=== PATIENT | female | born 1980 | race American Indian/Alaskan Native ===

== ENCOUNTER 2016-09-30 12:45 | Outpatient (CLI) | payer MEDICAID ==
--- NOTE | 2016-10-01 08:41 | Cat Scan Report ---
CT LUMBAR SPINE WITHOUT CONTRAST HISTORY: Lumbar radiculopathy, herniated disc. TECHNIQUE: Helical CT without IV contrast. Sagittal and coronal reformatted images. COMPARISON: CT lumbar myelogram dated 01/08/16. FINDINGS: Posterior fusion changes and disc spacer placement at L5-S1 appear stable since 01/08/16. There is normal height and alignment of the lumbar vertebra. No fracture or malalignment. The posterior elements are in appropriate relationship. L5-S1: There is mild circumferential disc spurring with mild bilateral neural foraminal narrowing estimated at 25-50%. The left neural foramen appears slightly more affected. There are mild arthritic changes in the facet joints. Evaluation of intraspinal contents is limited without intrathecal contrast. No large herniation is appreciated. The remaining levels of the lumbar spine remain within normal limits. The paraspinal soft tissues are unremarkable. IMPRESSION: Surgical changes at L5-S1 as outlined above. There is mild to moderate bilateral neural foraminal narrowing at this level, left greater than right. Please see above. The remaining levels are within normal limits. No overwhelming change since the CT lumbar myelogram dated 01/08/16.
== END 2016-09-30 12:46 | disposition home or self-care (01) ==
LOC: CT 12:45
PROVIDERS: ATTEND Orthopaedic Surgery Orthopaedic Surgery of the Spine
DX: M48.02 Spinal stenosis, cervical region (principal); M48.06 Spinal stenosis, lumbar region; M51.16 Intervertebral disc disorders with radiculopathy, lumbar region; M50.10 Cervical disc disorder with radiculopathy, unspecified cervical region; M47.896 Other spondylosis, lumbar region
CPT/HCPCS: 72131

== ENCOUNTER 2018-12-17 14:54 | Emergency (ER) | payer MEDICAID ==
--- NOTE | 2018-12-17 15:13 | Event Note ---
ED Screening Note Date of service: 12/17/18 Time: 15:10 ED Screening Note: 38 y/o female comes in for abd with N/V. Feeling near faint. Had gastric sleeve in May. !0 weeks preg. This initial assessment/diagnostic orders/clinical plan/treatment(s) is/are subject to change based on patients health status, clinical progression and re- assessment by fellow clinical providers in the ED. Further treatment and workup at subsequent clinical providers discretion. Patient/guardian urged not to elope from the ED as their condition may be serious if not clinically assessed and managed. Initial orders include:
[2018-12-17] MEDS ORDERED: NACL 0.9% 1000 ML 1,000 ML IV ONE ×2 (15:46→18:05)
[2018-12-17] MEDS ORDERED: ZOFRAN IV ONE (15:46)
--- NOTE | 2018-12-17 15:50 | Emergency Department Report ---
<DAVID PHILLIPS - Last Filed: 12/17/18 18:53> ED General Adult HPI - General Chief complaint: Weakness Stated complaint: 10 WKS /DIZZY Time Seen by Provider: 12/17/18 15:43 - History of Present Illness Initial comments: Patient states that she receives care at [facility]. Patient states that she is unable to eat as much as she used to since her surgery in May. - Related Data Home Medications Medication Instructions Recorded Confirmed Last Taken traMADol [Ultram 50 MG tab] 50 mg PO PRN PRN 01/08/16 01/08/16 01/03/16 Previous Rx's Medication Instructions Recorded Last Taken Type HYDROcodone/APAP 5-325 [[place] 1 each PO Q6HR PRN #20 tablet 01/12/16 Unknown Rx 5/325] Ibuprofen [Motrin] 800 mg PO Q8HR PRN #30 tablet 01/12/16 Unknown Rx Allergies Allergy/AdvReac Type Severity Reaction Status Date / Time No Known Allergies Allergy Verified 12/17/18 15:11 ED Past Medical Hx - Medications Home Medications: Home Medications Medication Instructions Recorded Confirmed Last Taken Type traMADol [Ultram 50 MG tab] 50 mg PO PRN PRN 01/08/16 01/08/16 01/03/16 History HYDROcodone/APAP 5-325 [[place] 1 each PO Q6HR PRN #20 tablet 01/12/16 Unknown Rx 5/325] Ibuprofen [Motrin] 800 mg PO Q8HR PRN #30 tablet 01/12/16 Unknown Rx ED Medical Decision Making - Lab Data Result diagrams: 12/17/18 15:30 12/17/18 15:30 - EKG Data EKG shows normal: sinus rhythm Rate: normal, bradycardia - Radiology Data Radiology results: report reviewed, image reviewed - Medical Decision Making This is a 38-year-old female presented to the ED at about 10 weeks gestation for weakness and feeling dizzy due to the loss of appetite. Patient received 1 L of fluids in the ED. Lab labs obtained. CBC and CMP shows normal results. Ultrasound obtained pending. Patient reports feeling much better with the fluids. The patient follow up with her primary care physician 2-3 days. Discussed the patient she will need to eat more to sustain some energy for completion of the . Discussed. Medical ED every hour in small quantities. ED Disposition Clinical Impression: Episode of dizziness Disposition: DC-01 TO HOME OR SELFCARE Is pt being admited?: No Does the pt Need Aspirin: No Condition: Stable Instructions: (ED), Weakness (ED), Fatigue (ED) Additional Instructions: Make sure to follow up with the [facility] as discussed. Take all your medications as you've been prescribed. If you have any worsening symptoms or develop new symptoms please return to ED immediately. Referrals: MEÑO WHITEHEAD MD [Referring] - 3-5 Days [facility] [Provider Group] - 3-5 Days Forms: Accompanied Note, Work/School Release Form(ED) <ABIODUN KOHLER - Last Filed: 12/18/18 08:08> ED General Adult HPI - General Source: patient, family Mode of arrival: Wheelchair Limitations: No Limitations - History of Present Illness Initial comments: Patient is 38 years old female 4 para 1 with 2 miscarriage at 10 weeks p regnant. Patient presented to the ER complaining of generalized weakness and fainting. Symptoms started yesterday. Patient stated that she is unable to eat or drink. Patient had a gastric sleeve in May 2018. Patient denied any diarrhea. No vaginal bleeding or discharge. ED Review of Systems ROS: Stated complaint: 10 WKS /DIZZY Other details as noted in HPI Comment: All other systems reviewed and negative Constitutional: denies: chills, fever Respiratory: denies: cough, shortness of breath Cardiovascular: denies: chest pain, palpitations Gastrointestinal: nausea Musculoskeletal: denies: back pain Neurological: weakness. denies: headache, numbness, paresthesias, confusion ED Past Medical Hx - Surgical History Hx Cholecystectomy: Yes Additional Surgical History: tonsilectomy, L wrist. Surgery to neck and lower back 08/27/2015. Right shoulder surgery - Social History Smoking Status: Never Smoker Substance Use Type: None ED Physical Exam - General Limitations: No Limitations General appearance: alert, in no apparent distress - Head Head exam: Present: atraumatic, normocephalic, normal inspection - Eye Eye exam: Present: normal appearance, PERRL - ENT ENT exam: Present: mucous membranes dry - Neck Neck exam: Present: normal inspection, full ROM. Absent: tenderness, meningismus, lymphadenopathy, thyromegaly - Respiratory Respiratory exam: Present: normal lung sounds bilaterally - Cardiovascular Cardiovascular Exam: Present: regular rate, normal rhythm, normal heart sounds - GI/Abdominal GI/Abdominal exam: Present: soft, normal bowel sounds. Absent: distended, tenderness, guarding, rebound, rigid, organomegaly, mass, bruit, pulsatile mass, hernia - Extremities Exam Extremities exam: Present: normal inspection, full ROM, normal capillary refill. Absent: tenderness, pedal edema, calf tenderness - Back Exam Back exam: Present: normal inspection, full ROM. Absent: CVA tenderness (R), CVA tenderness (L), muscle spasm, paraspinal tenderness, vertebral tenderness - Neurological Exam Neurological exam: Present: alert, oriented X3, CN II-XII intact, normal gait, reflexes normal - Psychiatric Psychiatric exam: Present: normal mood - Skin Skin exam: Present: warm, intact, normal color ED Course Vital Signs 12/17/18 12/17/18 15:08 19:12 Temperature 97.6 F 98.4 F Pulse Rate 60 74 Respiratory 16 15 Rate Blood Pressure 96/66 Blood Pressure 95/56 [Left] O2 Sat by Pulse 100 100 Oximetry ED Medical Decision Making - Lab Data Result diagrams: 12/17/18 15:30 12/17/18 15:30 Critical care attestation.: If time is entered above; I have spent that time in minutes in the direct care of this critically ill patient, excluding procedure time. ED Disposition Is pt being admited?: No Does the pt Need Aspirin: No
[2018-12-17 16:29] LABS: Basophils % (Auto) 0.5 % (0.0-1.8); Eosinophils % (Auto) 0.2 % (0.0-4.3); Hematocrit 36.1 % (30.3-42.9); Hemoglobin 12.1 gm/dl (10.1-14.3); Lymphocytes # (Auto) 1.3 K/mm3 (1.2-5.4); Lymphocytes % (Auto) 25.3 % (13.4-35.0); Mean Corpuscular HGB Conc 34 % (30-34); Mean Corpuscular Volume 91 fl (79-97); Monocytes # (Auto) 0.4 K/mm3 (0.0-0.8); Monocytes % (Auto) 6.8 % (0.0-7.3); Platelet Count 215 K/mm3 (140-440); Red Blood Count 3.97 M/mm3 (3.65-5.03); Red Cell Distribution Width 12.8 % (13.2-15.2)
[2018-12-17 16:44] LABS: Alanine Aminotransferase 12 units/L (7-56); Albumin 4.2 g/dL (3.9-5); BUN/Creatinine Ratio 22; Blood Urea Nitrogen 13 mg/dL (7-17); Calcium 9.5 mg/dL (8.4-10.2); Hemolysis Index 8
[2018-12-17 19:05] LABS: Bilirubin,Urine NEG (Negative); Blood,Urine NEG (Negative); Color,Urine Amber (Yellow); Mucus,Urine 3+ /HPF
[2018-12-17 19:13] VITALS: BP 95/56
--- NOTE | 2018-12-17 19:59 | Ultrasound Report ---
OB ultrasound FINDINGS: There is a viable intrauterine with appropriate measurements reveal a MA of 9 wee ks 5 days for EDC of 07/17/2019. This correlates with the clinical dates. heart rate is 156 bpm. Both ovaries appear normal. No free fluid. No significant abnormality. Signer Name: Elias John MD Signed: 12/17/2018 7:54 PM Workstation Name: [id number]
--- NOTE | 2018-12-17 20:02 | Ultrasound Report ---
Endovaginal OB ultrasound FINDINGS: There is a viable intrauterine with crown-rump length and sac measurements corres ponding to an MA of 8 weeks 2 days for EDC of 07/27/2019. This is slightly behind the clinical dates. heart rate is 150 bpm. The left ovary measures 4 x 1.8 x 2.4 cm and is normal. The right ovary measures 2.6 x 2.4 x 2.3 cm and contains a hypoechoic, solid area measuring 1.9 x 1.6 x 1.9 cm. No fr ee fluid. IMPRESSION: Viable IUP as described. Signer Name: Elias John MD Signed: 12/17/2018 7:57 PM Workstation Name: [id number]
== END 2018-12-17 20:13 | disposition home or self-care (01) ==
LOC: ED 14:54
DX: O26.891 Other specified pregnancy related conditions, first trimester (principal); R42 Dizziness and giddiness; R53.1 Weakness; Z79.899 Other long term (current) drug therapy; Z90.89 Acquired absence of other organs; Z98.890 Other specified postprocedural states; Z3A.10 10 weeks gestation of pregnancy; Z90.49 Acquired absence of other specified parts of digestive tract; Z79.1 Long term (current) use of non-steroidal anti-inflammatories (NSAID)
CPT/HCPCS: 36415; 76801; 76817; 80053; 81001; 82962; 84702; 85025; 87086; 93005; 93010; 96361; 96374; 99284; J2405; J7030

== ENCOUNTER 2019-05-22 04:36 | Observation (INO) | payer MEDICAID ==
[2019-05-22 06:01] LABS: Basophils % (Auto) 0.4 % (0.0-1.8); Eosinophils % (Auto) 0.4 % (0.0-4.3); Hemoglobin 10.9 gm/dl (10.1-14.3); Lymphocytes # (Auto) 1.5 K/mm3 (1.2-5.4); Lymphocytes % (Auto) 20.8 % (13.4-35.0); Mean Corpuscular HGB Conc 34 % (30-34); Mean Corpuscular Volume 92 fl (79-97); Monocytes # (Auto) 0.4 K/mm3 (0.0-0.8); Platelet Count 205 K/mm3 (140-440); Red Blood Count 3.48 M/mm3 (3.65-5.03); Red Cell Distribution Width 13.2 % (13.2-15.2)
[2019-05-22 06:25] LABS: Alanine Aminotransferase 8 units/L (7-56); Albumin 3.6 g/dL (3.9-5); BUN/Creatinine Ratio 15; Blood Urea Nitrogen 6 mg/dL (7-17); Hemolysis Index 1
--- NOTE | 2019-05-22 13:07 | History and Physical Report ---
History of Present Illness Date of examination: 05/22/19 Date of admission: 05/22/2019 Chief complaint: Was transported to the hospital's L&D after she was observed having a seizure at [facility]. Patient is 30wks and had no previous hx of seizures. History of present illness: Was transported to the hospital's L&D after she was observed having a seizure at [facility]. Patient is 30wks and had no previous hx of seizures. 30+4wks . EDC 07/27/19. . She denied contractions, vaginal bleeding or leakage of fluids. fetus was moving as usual. Past History Past Surgical History: gastric bypass - Obstetrical History Expected Date of Delivery: 07/27/19 Actual Gestation: 30 Week(s) 4 Day(s) : 4 Para: 1 Medications and Allergies Allergies Allergy/AdvReac Type Severity Reaction Status Date / Time No Known Allergies Allergy Verified 12/17/18 15:11 Home Medications Medication Instructions Recorded Confirmed Last Taken Type Formula-Dha Softgel 1 tab PO DAILY 05/22/19 05/22/19 05/21/19 09:00 History Review of Systems All systems: negative - Vital Signs Vital signs: Vital Signs Pulse Pulse Ox 72 99 05/22/19 04:56 05/22/19 04:56 Temp Pulse Resp BP Pulse Ox 98.2 F 91 H 16 100/56 99 05/22/19 11:26 05/22/19 11:26 05/22/19 11:26 05/22/19 11:26 05/22/19 11:26 - Physical Exam Lungs: Positive: Normal air movement Abdomen: Positive: soft, distention. Negative: tenderness, guarding Uterus: Positive: normal size, enlarged - Obstetrical FHR: auscultation normal Results Result Diagrams: 05/22/19 05:15 05/22/19 05:15 Abnormal lab results 05/22/19 05/22/19 Range/Units 05:15 05:15 RBC 3.48 L (3.65-5.03) M/mm3 Seg Neutrophils % 72.4 H (40.0-70.0) % Sodium 136 L (137-145) mmol/L Carbon Dioxide 20 L (22-30) mmol/L BUN 6 L (7-17) mg/dL Creatinine 0.4 L (0.7-1.2) mg/dL Total Protein 6.1 L (6.3-8.2) g/dL Albumin 3.6 L (3.9-5) g/dL All other labs normal. Assessment and Plan - Patient Problems (1) with 30 completed weeks gestation Current Visit: Yes Status: Acute (2) Seizure disorder during in third trimester Current Visit: Yes Status: Acute Plan to address problem: Patient will remain under observation whilst being worked up. It's unclear if observed seizure was related or otherwise.MFM at [facility] are familiar with patient and guidance from them was sought.
[2019-05-22 13:45] LABS: Bacteria,Urine 2+ /HPF (Negative); Bilirubin,Urine NEG (Negative); Blood,Urine NEG (Negative); Color,Urine Straw (Yellow); Protein,Urine <15 mg/dL mg/dL (Negative); Urobilinogen,Urine < 2.0 mg/dL (<2.0)
[2019-05-22] MEDS: ACETAMINOPHEN 325 MG TAB PO PRN (21:22)
--- NOTE | 2019-05-23 08:48 | Consultation ---
History of Present Illness Consult date: 05/23/19 Requesting physician: ANGÉLICA COLLIER History of present illness: Ms. Angel is a 39 y/o STEPHEN 07/27/18 EGA at 30 4/7 weeks followed by [facility] for AMA and H/O Gastric bypass per patient Transported by ambulance to L&D on 05/22/19 at 0436 am after suspected seizure at [facility] BP normal 98/65 - No JAMES's Scotoma or RUQ Pain Denies h/o seizure in past Feeling tired and lethargic throughout - Recent h/o gastric bypass Alexis Reports h/o anemia FOC states patient bathing child around 2 am and felt weak and "eyes started rolling" did not fall lasted 3 minutes Pos FM's Denies ctx vag bleeding leaking --------- Med history - neg but anemia Reports ?? clot in leg diag by a family physician (not on anticoagulants)- Today on PE leg NT no calf tenderness neg homans surg gastric bypass - surgery on back and neck from " fall at home" no STD denies C/D/D NKA --------- UA Pos for WBC , bact 2+ , Prot < 14 Pos epi - Denies dysuria or back pain or fevers H/H T 10.4/32 EFM Categ I 130's pos accels no contractions --- Abd gravid NT no RUQ tenderness Ext NT no edema , DTR 2/4 no clonus neg homans vag deferred Past History Past Surgical History: gastric bypass - Obstetrical History : 4 Medications and Allergies Allergies Allergy/AdvReac Type Severity Reaction Status Date / Time No Known Allergies Allergy Verified 12/17/18 15:11 Home Medications Medication Instructions Recorded Confirmed Last Taken Type Formula-Dha Softgel 1 tab PO DAILY 05/22/19 05/22/19 05/21/19 09:00 History Active Meds: Active Medications Acetaminophen (Tylenol) 650 mg PO Q6H PRN PRN Reason: Pain, Mild (1-3) Last Admin: 05/22/19 21:22 Dose: 650 mg Documented by: - Vital Signs Vital signs: Vital Signs Pulse Pulse Ox 72 99 05/22/19 04:56 05/22/19 04:56 Temp Pulse Resp BP Pulse Ox 98.3 F 74 12 98/65 100 05/22/19 20:05 05/23/19 07:58 05/22/19 20:05 05/23/19 07:58 05/23/19 07:56 Results Result Diagrams: 05/22/19 05:15 05/22/19 05:15 Abnormal lab results 05/22/19 Range/Units 13:05 Urine WBC (Auto) 23.0 H (0.0-6.0) /HPF All other labs normal. Assessment and Plan Impression: 1. Morales IUP at 30 4/7 weeks 2. Suspected Seizure 3. AMA 4. H/O Gastric Bypass 5. UTI 6. ?? H/O blood clot leg per patient ("diag by family physician") 7. H/O anemia Recommendations 1. Straight Cath UA and C&S - after striaght cath - Macrodantoin 100 BID PO 2. Labs: HbA1c, drug screen Folate level Vit B12 3. US EFW and BPP 4. Lower leg dopplers 5. Neuro consult 6. Iron BID 7. Possible discharged pending seizure work uup 8. EFM q shift
--- NOTE | 2019-05-23 14:25 | Progress Note ---
Assessment and Plan - Patient Problems (1) with 30 completed weeks gestation Current Visit: Yes Status: Acute Plan to address problem: stable. Because of h/o questionable DVT noted in [facility]'s note, LE Doppler ordered. BPP also ordered. (2) Seizure disorder during in third trimester Current Visit: Yes Status: Acute Plan to address problem: Labs per [facility] recommendations ordered and Macrobid for suspected UTI started. Neuro consult also ordered to assess whether she had a seizure or not, if any further intervention is needed and if pt is stable for discharge Subjective - Subjective Date of service: 05/23/19 Interval history: PT denies any syncopal episodes today. She notes she still feels weak, even weaker than she did before going to the hospital a few days ago. No ctxs, good FM. No VB. No JAMES/blurred vision currently. Objective - Vital Signs Vital Signs: Vital Signs - 12hr 05/23/19 05/23/19 05/23/19 02:21 02:26 02:31 Pulse Rate 69 74 74 Blood Pressure Blood Pressure [Right] O2 Sat by Pulse 99 99 98 Oximetry 05/23/19 05/23/19 05/23/19 02:36 02:41 02:46 Pulse Rate 74 70 71 Blood Pressure 92/55 Blood Pressure [Right] O2 Sat by Pulse 98 99 100 Oximetry 05/23/19 05/23/19 05/23/19 02:51 02:56 03:01 Pulse Rate 70 69 74 Blood Pressure Blood Pressure [Right] O2 Sat by Pulse 100 100 100 Oximetry 05/23/19 05/23/19 05/23/19 03:06 03:11 03:16 Pulse Rate 74 75 71 Blood Pressure Blood Pressure [Right] O2 Sat by Pulse 100 100 100 Oximetry 05/23/19 05/23/19 05/23/19 03:21 03:26 03:31 Pulse Rate 77 72 74 Blood Pressure Blood Pressure [Right] O2 Sat by Pulse 100 100 100 Oximetry 05/23/19 05/23/19 05/23/19 03:36 03:41 03:42 Pulse Rate 70 79 72 Blood Pressure 92/57 Blood Pressure [Right] O2 Sat by Pulse 100 99 Oximetry 05/23/19 05/23/19 05/23/19 03:46 03:51 03:56 Pulse Rate 71 86 78 Blood Pressure Blood Pressure [Right] O2 Sat by Pulse 98 99 100 Oximetry 05/23/19 05/23/19 05/23/19 04:01 04:06 04:11 Pulse Rate 83 84 74 Blood Pressure Blood Pressure [Right] O2 Sat by Pulse 99 99 98 Oximetry 05/23/19 05/23/19 05/23/19 04:16 04:21 04:26 Pulse Rate 76 76 79 Blood Pressure Blood Pressure [Right] O2 Sat by Pulse 98 98 98 Oximetry 05/23/19 05/23/19 05/23/19 04:31 04:36 04:41 Pulse Rate 82 86 83 Blood Pressure Blood Pressure [Right] O2 Sat by Pulse 98 99 99 Oximetry 05/23/19 05/23/19 05/23/19 04:42 04:46 04:51 Pulse Rate 78 76 74 Blood Pressure 101/60 Blood Pressure [Right] O2 Sat by Pulse 98 98 Oximetry 05/23/19 05/23/19 05/23/19 04:56 05:01 05:06 Pulse Rate 80 77 78 Blood Pressure Blood Pressure [Right] O2 Sat by Pulse 99 98 98 Oximetry 05/23/19 05/23/19 05/23/19 05:11 05:16 05:21 Pulse Rate 78 88 80 Blood Pressure Blood Pressure [Right] O2 Sat by Pulse 98 99 98 Oximetry 05/23/19 05/23/19 05/23/19 05:26 05:31 05:36 Pulse Rate 79 81 79 Blood Pressure Blood Pressure [Right] O2 Sat by Pulse 98 98 98 Oximetry 05/23/19 05/23/19 05/23/19 05:41 05:43 05:46 Pulse Rate 78 72 75 Blood Pressure 91/50 Blood Pressure [Right] O2 Sat by Pulse 98 98 Oximetry 05/23/19 05/23/19 05/23/19 05:51 05:56 06:01 Pulse Rate 73 69 75 Blood Pressure Blood Pressure [Right] O2 Sat by Pulse 97 99 97 Oximetry 05/23/19 05/23/19 05/23/19 06:06 06:11 06:16 Pulse Rate 84 79 76 Blood Pressure Blood Pressure [Right] O2 Sat by Pulse 98 99 98 Oximetry 05/23/19 05/23/19 05/23/19 06:21 06:26 06:31 Pulse Rate 86 80 84 Blood Pressure Blood Pressure [Right] O2 Sat by Pulse 99 98 99 Oximetry 05/23/19 05/23/19 05/23/19 06:36 06:41 06:42 Pulse Rate 87 81 85 Blood Pressure 93/54 Blood Pressure [Right] O2 Sat by Pulse 98 98 Oximetry 05/23/19 05/23/19 05/23/19 06:46 06:51 06:56 Pulse Rate 72 75 95 H Blood Pressure Blood Pressure [Right] O2 Sat by Pulse 99 98 99 Oximetry 05/23/19 05/23/19 05/23/19 07:01 07:06 07:11 Pulse Rate 85 79 80 Blood Pressure Blood Pressure [Right] O2 Sat by Pulse 100 100 100 Oximetry 05/23/19 05/23/19 05/23/19 07:16 07:21 07:26 Pulse Rate 74 77 78 Blood Pressure Blood Pressure [Right] O2 Sat by Pulse 100 100 100 Oximetry 05/23/19 05/23/19 05/23/19 07:31 07:36 07:41 Pulse Rate 75 78 67 Blood Pressure Blood Pressure [Right] O2 Sat by Pulse 99 98 99 Oximetry 05/23/19 05/23/19 05/23/19 07:42 07:46 07:51 Pulse Rate 70 77 71 Blood Pressure 94/58 Blood Pressure [Right] O2 Sat by Pulse 98 98 Oximetry 05/23/19 05/23/19 05/23/19 07:56 07:58 08:42 Pulse Rate 77 74 78 Blood Pressure 98/65 115/61 Blood Pressure 98/65 [Right] O2 Sat by Pulse 100 Oximetry 05/23/19 05/23/19 05/23/19 09:43 10:42 13:06 Pulse Rate 73 71 81 Blood Pressure 98/56 84/49 102/50 Blood Pressure [Right] O2 Sat by Pulse Oximetry 05/23/19 13:42 Pulse Rate 83 Blood Pressure 102/59 Blood Pressure [Right] O2 Sat by Pulse Oximetry - Exam Abdomen: Present: normal appearance, soft. Absent: tenderness FHR comments: WNL - Labs Labs: Abnormal Labs 05/22/19 05/22/19 05/22/19 05:15 05:15 13:05 RBC 3.48 L Seg Neutrophils % 72.4 H Sodium 136 L Carbon Dioxide 20 L BUN 6 L Creatinine 0.4 L Total Protein 6.1 L Albumin 3.6 L Urine WBC (Auto) 23.0 H
[2019-05-23 15:13] LABS: Amphetamine Screen,Urine PRESUMPTIVE NEGATIVE; Benzodiazepines Screen,Urine PRESUMPTIVE NEGATIVE; Cannabinoid Screen,Urine PRESUMPTIVE NEGATIVE; Cocaine Screen,Urine PRESUMPTIVE NEGATIVE; Methadone Screen,Urine PRESUMPTIVE NEGATIVE; Opiate Screen,Urine PRESUMPTIVE NEGATIVE
--- NOTE | 2019-05-23 15:18 | Vascular Lab Report ---
DUPLEX DOPPLER LOWER EXTREMITY VEINS, BILATERAL INDICATION: eval. for dvt. TECHNIQUE: Duplex doppler imaging was performed through the veins of both lower extremities using venous marilynn maria esther and other maneuvers. COMPARISON: None available. FINDINGS: Right Common femoral vein: Negative. Right Superficial femoral vein: Negative. Right Popliteal vein: Negative. Right Calf veins: Negative. Left Common femoral vein: Negative. Left Superficial femoral vein: Negative. Left Popliteal vein: Negative. Left Calf veins: Negative. Additional findings: None. IMPRESSION: Negative for DVT. Signer Name: Chacho Askew MD Signed: 05/23/2019 3:14 PM Workstation Name: [id number]
--- NOTE | 2019-05-23 16:59 | Ultrasound Report ---
Obstetrical ultrasound with biophysical profile. HISTORY: History obtaining. FINDINGS: Limited OB ultrasound demonstrates a single viable intrauterine in the breech pos ition. Amniotic fluid index is 11. Placenta is located at the fundus and unremarkable. heart to nasim are 156 bpm. Biophysical profile is 8/8. IMPRESSION: 1. Viable intrauterine . 2. Biophysical profile 88. Signer Name: Chacho Askew MD Signed: 05/23/2019 4:55 PM Workstation Name: [id number]
[2019-05-23] MEDS: NITROFURANTOIN MONOHYD/M-CRYST 100 MG CAP PO SCH ×2 (17:40→22:24)
[2019-05-23] MEDS: ACETAMINOPHEN 325 MG TAB PO PRN (22:30)
[2019-05-24] MEDS: ACETAMINOPHEN 325 MG TAB PO PRN (09:12)
[2019-05-24] MEDS ORDERED: DOCUSATE SODIUM 100 MG CAP PO ONE (10:00)
--- NOTE | 2019-05-24 10:18 | Progress Note ---
Assessment and Plan - Patient Problems (1) with 30 completed weeks gestation Onset Date: 05/24/19 Current Visit: Yes Status: Acute Plan to address problem: A: IUP @ 30 5/7 weeks New onset seizures - currently stable without meds P: Continue Observation Awaiting EEG (2) Seizure disorder during in third trimester Onset Date: 05/24/19 Current Visit: Yes Status: Acute Subjective - Subjective Date of service: 05/24/19 Principal diagnosis: IUP @ 30 5/7 weeks; New onset seizures Interval history: Pt is a 39yo BF EDC 07/27/19; EGA 30 5/7 weeks transported to the hospital's L&D after she was observed having a seizure at [facility]. She has no previous hx of seizures and has not had any further seizures since being hospitalized. She denied contractions, vaginal bleeding or leakage of fluids. + movements as usual. Patient reports: new complaints (headache), movement normal, no loss of fluid, no vaginal bleeding, no contractions Objective - Vital Signs Vital Signs: Vital Signs - 12hr 05/24/19 05/24/19 05/24/19 07:56 08:03 08:04 Temperature 98.4 F Pulse Rate 84 91 H 88 Respiratory 18 Rate Blood Pressure 104/64 Blood Pressure 104/64 [Right] O2 Sat by Pulse 98 Oximetry 05/24/19 05/24/19 05/24/19 08:08 08:13 08:18 Temperature Pulse Rate 89 88 88 Respiratory Rate Blood Pressure Blood Pressure [Right] O2 Sat by Pulse 98 98 97 Oximetry 05/24/19 05/24/19 05/24/19 08:23 08:28 08:33 Temperature Pulse Rate 88 90 86 Respiratory Rate Blood Pressure Blood Pressure [Right] O2 Sat by Pulse 99 99 98 Oximetry 05/24/19 05/24/19 05/24/19 08:38 08:43 08:48 Temperature Pulse Rate 93 H 88 98 H Respiratory Rate Blood Pressure Blood Pressure [Right] O2 Sat by Pulse 98 98 98 Oximetry 05/24/19 05/24/19 05/24/19 08:53 08:58 09:03 Temperature Pulse Rate 94 H 89 83 Respiratory Rate Blood Pressure Blood Pressure [Right] O2 Sat by Pulse 99 98 98 Oximetry 12/25/19 12/25/19 12/25/19 09:08 09:13 09:18 Temperature Pulse Rate 91 H 94 H 92 H Respiratory Rate Blood Pressure Blood Pressure [Right] O2 Sat by Pulse 97 99 98 Oximetry 05/24/19 05/24/19 05/24/19 09:23 09:28 09:33 Temperature Pulse Rate 87 84 90 Respiratory Rate Blood Pressure Blood Pressure [Right] O2 Sat by Pulse 97 97 98 Oximetry 05/24/19 05/24/19 05/24/19 09:38 09:43 09:52 Temperature Pulse Rate 94 H 91 H 85 Respiratory Rate Blood Pressure Blood Pressure [Right] O2 Sat by Pulse 97 98 99 Oximetry 05/24/19 05/24/19 05/24/19 09:57 10:02 10:07 Temperature Pulse Rate 90 90 88 Respiratory Rate Blood Pressure Blood Pressure [Right] O2 Sat by Pulse 98 97 97 Oximetry 05/24/19 10:12 Temperature Pulse Rate 88 Respiratory Rate Blood Pressure Blood Pressure [Right] O2 Sat by Pulse 98 Oximetry - Exam Breasts: deferred Abdomen: Present: normal appearance, soft FHR: category 1 Uterine Contraction Monitor Mode: External Uterine Contraction Pattern: Absent - Labs Labs: Abnormal Labs 05/22/19 05/22/19 05/22/19 05:15 05:15 13:05 RBC 3.48 L Seg Neutrophils % 72.4 H Sodium 136 L Carbon Dioxide 20 L BUN 6 L Creatinine 0.4 L Total Protein 6.1 L Albumin 3.6 L Urine WBC (Auto) 23.0 H Laboratory Results - last 24 hr 05/23/19 05/23/19 05/23/19 09:30 16:24 16:24 Hemoglobin A1c 4.6 Vitamin B12 291.7 Folate Urine Opiates Screen Presumptive negative Urine Methadone Screen Presumptive negative Ur Barbiturates Screen Presumptive negative Ur Phencyclidine Scrn Presumptive negative Ur Amphetamines Screen Presumptive negative U Benzodiazepines Scrn Presumptive negative Urine Cocaine Screen Presumptive negative U Marijuana (THC) Screen Presumptive negative Drugs of Abuse Note Disclamer 05/23/19 16:24 Hemoglobin A1c Vitamin B12 Folate 17.09 Urine Opiates Screen Urine Methadone Screen Ur Barbiturates Screen Ur Phencyclidine Scrn Ur Amphetamines Screen U Benzodiazepines Scrn Urine Cocaine Screen U Marijuana (THC) Screen Drugs of Abuse Note - Results US- obstetric: report reviewed (BPP 01/05; Dopplers - Negative for DVT)
[2019-05-24] MEDS: NITROFURANTOIN MONOHYD/M-CRYST 100 MG CAP PO SCH ×2 (10:46→22:24)
[2019-05-24] MEDS: oxyCODONE /ACETAMINOPHEN 5-325MG TAB PO PRN ×2 (13:10→22:24)
[2019-05-25] MEDS ORDERED: LACTATED RINGERS 1,000 ML ONE ×2 (00:54→07:56)
[2019-05-25] MEDS ORDERED: LACTATED RINGERS 1,000 ML IV ONE (01:00)
[2019-05-25] MEDS ORDERED: TERBUTALINE 1 MG/1 ML INJ SUB-Q PRN (01:01)
[2019-05-25] MEDS ORDERED: ONDANSETRON 4 MG/2 ML INJ IV ONE (01:27)
--- NOTE | 2019-05-25 08:18 | Progress Note ---
Assessment and Plan - Patient Problems (1) with 30 completed weeks gestation Onset Date: 05/24/19 Current Visit: Yes Status: Acute (2) Seizure disorder during in third trimester Onset Date: 05/24/19 Current Visit: Yes Status: Acute Plan to address problem: Awaiting EEG today. Once it is done, pt can be assessed by Neuro and plan of care and discharge can be arranged. Subjective - Subjective Date of service: 05/25/19 Principal diagnosis: IUP @ 30 5/7 weeks; New onset seizures Interval history: PT denies any syncopal or seizure like episodes still, and none since in the hospital. She notes she still feels weak but it is improving. No ctxs currently but felt some overnight but also had some emesis then. Good FM. No VB. No JAMES/blurred vision. Patient reports: movement normal, no loss of fluid, no vaginal bleeding, no contractions Objective - Vital Signs Vital Signs: Vital Signs - 12hr 05/24/19 05/24/19 05/24/19 20:18 20:23 20:28 Pulse Rate 87 83 86 Blood Pressure O2 Sat by Pulse 98 98 98 Oximetry 05/24/19 05/24/19 05/24/19 20:33 20:38 20:43 Pulse Rate 84 84 90 Blood Pressure O2 Sat by Pulse 97 97 98 Oximetry 05/24/19 05/24/19 05/24/19 20:48 20:53 20:58 Pulse Rate 88 91 H 85 Blood Pressure O2 Sat by Pulse 98 97 98 Oximetry 05/24/19 05/24/19 05/24/19 21:03 21:08 21:13 Pulse Rate 94 H 85 83 Blood Pressure O2 Sat by Pulse 99 99 99 Oximetry 05/24/19 05/24/19 05/24/19 21:18 21:23 21:28 Pulse Rate 84 81 79 Blood Pressure O2 Sat by Pulse 98 98 98 Oximetry 05/24/19 05/24/19 05/24/19 21:33 21:38 21:43 Pulse Rate 84 83 84 Blood Pressure O2 Sat by Pulse 98 99 98 Oximetry 05/24/19 05/24/19 05/24/19 21:48 21:53 21:58 Pulse Rate 97 H 90 83 Blood Pressure O2 Sat by Pulse 100 100 98 Oximetry 05/24/19 05/24/19 05/24/19 22:03 22:08 22:13 Pulse Rate 81 79 84 Blood Pressure O2 Sat by Pulse 97 96 97 Oximetry 05/24/19 05/24/19 05/24/19 22:15 22:18 22:23 Pulse Rate 80 87 Blood Pressure O2 Sat by Pulse 76 L 46 L 84 Oximetry 05/24/19 05/24/19 05/24/19 22:28 22:33 22:38 Pulse Rate 84 83 82 Blood Pressure O2 Sat by Pulse 98 98 96 Oximetry 05/24/19 05/24/19 05/24/19 22:42 22:43 22:48 Pulse Rate 62 69 81 Blood Pressure O2 Sat by Pulse 94 86 58 L Oximetry 05/24/19 05/24/19 05/24/19 22:53 22:58 23:03 Pulse Rate 82 88 86 Blood Pressure O2 Sat by Pulse 40 L 98 96 Oximetry 05/24/19 05/24/19 05/24/19 23:08 23:13 23:18 Pulse Rate 89 91 H 98 H Blood Pressure O2 Sat by Pulse 95 96 96 Oximetry 05/24/19 05/24/19 05/24/19 23:20 23:23 23:28 Pulse Rate 89 98 H 75 Blood Pressure O2 Sat by Pulse 94 96 97 Oximetry 05/24/19 05/24/19 05/24/19 23:33 23:38 23:40 Pulse Rate 75 82 78 Blood Pressure O2 Sat by Pulse 96 96 94 Oximetry 05/24/19 05/24/19 05/24/19 23:43 23:48 23:53 Pulse Rate 80 83 79 Blood Pressure O2 Sat by Pulse 97 96 95 Oximetry 05/24/19 05/24/19 05/25/19 23:56 23:58 00:03 Pulse Rate 79 77 79 Blood Pressure O2 Sat by Pulse 94 95 95 Oximetry 05/25/19 05/25/19 05/25/19 00:08 00:13 00:18 Pulse Rate 77 78 79 Blood Pressure O2 Sat by Pulse 95 95 95 Oximetry 05/25/19 05/25/19 05/25/19 00:23 00:28 00:33 Pulse Rate 81 84 83 Blood Pressure O2 Sat by Pulse 96 95 95 Oximetry 05/25/19 05/25/19 05/25/19 00:38 00:43 00:46 Pulse Rate 89 81 86 Blood Pressure O2 Sat by Pulse 95 95 94 Oximetry 05/25/19 05/25/19 05/25/19 00:48 00:53 00:58 Pulse Rate 86 81 85 Blood Pressure O2 Sat by Pulse 97 97 98 Oximetry 05/25/19 05/25/19 05/25/19 01:03 01:11 01:16 Pulse Rate 76 86 80 Blood Pressure O2 Sat by Pulse 97 99 99 Oximetry 05/25/19 05/25/19 05/25/19 01:18 01:21 01:26 Pulse Rate 77 83 77 Blood Pressure 97/52 O2 Sat by Pulse 99 98 Oximetry 05/25/19 05/25/19 05/25/19 01:31 01:36 01:41 Pulse Rate 84 70 72 Blood Pressure O2 Sat by Pulse 97 97 97 Oximetry 05/25/19 05/25/19 05/25/19 01:46 01:51 01:56 Pulse Rate 70 69 79 Blood Pressure O2 Sat by Pulse 97 96 97 Oximetry 05/25/19 05/25/19 05/25/19 02:01 02:06 02:11 Pulse Rate 68 70 72 Blood Pressure O2 Sat by Pulse 96 97 96 Oximetry 05/25/19 05/25/19 05/25/19 02:16 02:21 02:26 Pulse Rate 71 69 69 Blood Pressure O2 Sat by Pulse 96 97 96 Oximetry 05/25/19 05/25/19 05/25/19 02:31 02:36 02:41 Pulse Rate 69 77 78 Blood Pressure O2 Sat by Pulse 96 96 96 Oximetry 05/25/19 05/25/19 05/25/19 02:46 02:51 02:56 Pulse Rate 81 78 74 Blood Pressure O2 Sat by Pulse 97 97 97 Oximetry 05/25/19 05/25/19 05/25/19 03:01 03:06 03:11 Pulse Rate 73 71 74 Blood Pressure O2 Sat by Pulse 96 96 96 Oximetry 05/25/19 05/25/19 05/25/19 03:16 03:21 03:26 Pulse Rate 68 69 66 Blood Pressure O2 Sat by Pulse 98 97 97 Oximetry 05/25/19 05/25/19 05/25/19 03:30 03:31 03:36 Pulse Rate 67 71 72 Blood Pressure O2 Sat by Pulse 94 97 97 Oximetry 12/05/25/19 05/25/19 03:41 03:46 03:51 Pulse Rate 71 69 72 Blood Pressure O2 Sat by Pulse 97 97 97 Oximetry 05/25/19 05/25/19 05/25/19 03:56 04:01 04:06 Pulse Rate 75 72 68 Blood Pressure O2 Sat by Pulse 97 96 97 Oximetry 05/25/19 05/25/19 05/25/19 04:11 04:16 04:21 Pulse Rate 69 67 74 Blood Pressure O2 Sat by Pulse 97 97 97 Oximetry 05/25/19 05/25/19 05/25/19 04:26 04:31 04:36 Pulse Rate 76 69 71 Blood Pressure O2 Sat by Pulse 96 97 97 Oximetry 05/25/19 05/25/19 05/25/19 04:41 04:46 04:51 Pulse Rate 70 66 64 Blood Pressure O2 Sat by Pulse 97 99 98 Oximetry 05/25/19 05/25/19 05/25/19 04:56 05:01 05:06 Pulse Rate 69 68 77 Blood Pressure O2 Sat by Pulse 99 98 100 Oximetry 05/25/19 05/25/19 05/25/19 05:11 05:16 05:21 Pulse Rate 72 69 69 Blood Pressure O2 Sat by Pulse 99 98 98 Oximetry 05/25/19 05/25/19 05/25/19 05:26 05:31 05:36 Pulse Rate 65 67 74 Blood Pressure O2 Sat by Pulse 100 99 97 Oximetry 05/25/19 05/25/19 05/25/19 05:41 05:46 05:51 Pulse Rate 72 75 80 Blood Pressure O2 Sat by Pulse 96 98 98 Oximetry 05/25/19 05/25/19 05/25/19 05:56 06:01 06:06 Pulse Rate 78 80 67 Blood Pressure O2 Sat by Pulse 98 98 99 Oximetry 05/25/19 05/25/19 05/25/19 06:11 06:16 06:21 Pulse Rate 69 69 95 H Blood Pressure O2 Sat by Pulse 99 97 98 Oximetry 05/25/19 05/25/19 05/25/19 06:26 06:31 06:36 Pulse Rate 65 73 68 Blood Pressure O2 Sat by Pulse 98 98 98 Oximetry 05/25/19 05/25/19 05/25/19 06:41 06:46 06:51 Pulse Rate 69 69 74 Blood Pressure O2 Sat by Pulse 98 99 98 Oximetry 05/25/19 05/25/19 05/25/19 06:56 07:01 07:06 Pulse Rate 73 73 71 Blood Pressure O2 Sat by Pulse 98 98 98 Oximetry 05/25/19 05/25/19 05/25/19 07:11 07:16 07:21 Pulse Rate 76 72 74 Blood Pressure O2 Sat by Pulse 99 98 98 Oximetry 05/25/19 05/25/19 05/25/19 07:26 07:31 07:36 Pulse Rate 75 73 85 Blood Pressure O2 Sat by Pulse 98 98 99 Oximetry 05/25/19 05/25/19 05/25/19 07:41 07:44 07:46 Pulse Rate 72 75 79 Blood Pressure 93/56 O2 Sat by Pulse 99 99 Oximetry 05/25/19 05/25/19 05/25/19 07:51 07:56 08:01 Pulse Rate 77 80 83 Blood Pressure O2 Sat by Pulse 99 99 99 Oximetry - Exam Abdomen: Present: normal appearance, soft. Absent: tenderness - Labs Labs: Abnormal Labs 05/22/19 05/22/19 05/22/19 05:15 05:15 13:05 RBC 3.48 L Seg Neutrophils % 72.4 H Sodium 136 L Carbon Dioxide 20 L BUN 6 L Creatinine 0.4 L Total Protein 6.1 L Albumin 3.6 L Urine WBC (Auto) 23.0 H
[2019-05-25 10:51] VITALS: BP 97/62
[2019-05-25] MEDS: NITROFURANTOIN MONOHYD/M-CRYST 100 MG CAP PO SCH (10:54)
--- NOTE | 2019-05-25 11:21 | Progress Note ---
Subjective Principal diagnosis: IUP @ 30 5/7 weeks; New onset seizures Objective - Vital Sign Vital Signs - 12hr 05/24/19 05/24/19 05/24/19 23:18 23:20 23:23 Temperature Pulse Rate 98 H 89 98 H Respiratory Rate Blood Pressure O2 Sat by Pulse 96 94 96 Oximetry 05/24/19 05/24/19 05/24/19 23:28 23:33 23:38 Temperature Pulse Rate 75 75 82 Respiratory Rate Blood Pressure O2 Sat by Pulse 97 96 96 Oximetry 05/24/19 05/24/19 05/24/19 23:40 23:43 23:48 Temperature Pulse Rate 78 80 83 Respiratory Rate Blood Pressure O2 Sat by Pulse 94 97 96 Oximetry 05/24/19 05/24/19 05/24/19 23:53 23:56 23:58 Temperature Pulse Rate 79 79 77 Respiratory Rate Blood Pressure O2 Sat by Pulse 95 94 95 Oximetry 05/25/19 05/25/19 05/25/19 00:03 00:08 00:13 Temperature Pulse Rate 79 77 78 Respiratory Rate Blood Pressure O2 Sat by Pulse 95 95 95 Oximetry 05/25/19 05/25/19 05/25/19 00:18 00:23 00:28 Temperature Pulse Rate 79 81 84 Respiratory Rate Blood Pressure O2 Sat by Pulse 95 96 95 Oximetry 05/25/19 05/25/19 05/25/19 00:33 00:38 00:43 Temperature Pulse Rate 83 89 81 Respiratory Rate Blood Pressure O2 Sat by Pulse 95 95 95 Oximetry 05/25/19 05/25/19 05/25/19 00:46 00:48 00:53 Temperature Pulse Rate 86 86 81 Respiratory Rate Blood Pressure O2 Sat by Pulse 94 97 97 Oximetry 05/25/19 05/25/19 05/25/19 00:58 01:03 01:11 Temperature Pulse Rate 85 76 86 Respiratory Rate Blood Pressure O2 Sat by Pulse 98 97 99 Oximetry 05/25/19 05/25/19 05/25/19 01:16 01:18 01:21 Temperature Pulse Rate 80 77 83 Respiratory Rate Blood Pressure 97/52 O2 Sat by Pulse 99 99 Oximetry 05/25/19 05/25/19 05/25/19 01:26 01:31 01:36 Temperature Pulse Rate 77 84 70 Respiratory Rate Blood Pressure O2 Sat by Pulse 98 97 97 Oximetry 05/25/19 05/25/19 05/25/19 01:41 01:46 01:51 Temperature Pulse Rate 72 70 69 Respiratory Rate Blood Pressure O2 Sat by Pulse 97 97 96 Oximetry 05/25/19 05/25/19 05/25/19 01:56 02:01 02:06 Temperature Pulse Rate 79 68 70 Respiratory Rate Blood Pressure O2 Sat by Pulse 97 96 97 Oximetry 05/25/19 05/25/19 05/25/19 02:11 02:16 02:21 Temperature Pulse Rate 72 71 69 Respiratory Rate Blood Pressure O2 Sat by Pulse 96 96 97 Oximetry 05/25/19 05/25/19 05/25/19 02:26 02:31 02:36 Temperature Pulse Rate 69 69 77 Respiratory Rate Blood Pressure O2 Sat by Pulse 96 96 96 Oximetry 05/25/19 05/25/19 05/25/19 02:41 02:46 02:51 Temperature Pulse Rate 78 81 78 Respiratory Rate Blood Pressure O2 Sat by Pulse 96 97 97 Oximetry 05/25/19 05/25/19 05/25/19 02:56 03:01 03:06 Temperature Pulse Rate 74 73 71 Respiratory Rate Blood Pressure O2 Sat by Pulse 97 96 96 Oximetry 05/25/19 05/25/19 05/25/19 03:11 03:16 03:21 Temperature Pulse Rate 74 68 69 Respiratory Rate Blood Pressure O2 Sat by Pulse 96 98 97 Oximetry 05/25/19 05/25/19 05/25/19 03:26 03:30 03:31 Temperature Pulse Rate 66 67 71 Respiratory Rate Blood Pressure O2 Sat by Pulse 97 94 97 Oximetry 05/25/19 05/25/19 05/25/19 03:36 03:41 03:46 Temperature Pulse Rate 72 71 69 Respiratory Rate Blood Pressure O2 Sat by Pulse 97 97 97 Oximetry 05/25/19 05/25/19 05/25/19 03:51 03:56 04:01 Temperature Pulse Rate 72 75 72 Respiratory Rate Blood Pressure O2 Sat by Pulse 97 97 96 Oximetry 05/25/19 05/25/19 05/25/19 04:06 04:11 04:16 Temperature Pulse Rate 68 69 67 Respiratory Rate Blood Pressure O2 Sat by Pulse 97 97 97 Oximetry 05/25/19 05/25/19 05/25/19 04:21 04:26 04:31 Temperature Pulse Rate 74 76 69 Respiratory Rate Blood Pressure O2 Sat by Pulse 97 96 97 Oximetry 05/25/19 05/25/19 05/25/19 04:36 04:41 04:46 Temperature Pulse Rate 71 70 66 Respiratory Rate Blood Pressure O2 Sat by Pulse 97 97 99 Oximetry 05/25/19 05/25/19 05/25/19 04:51 04:56 05:01 Temperature Pulse Rate 64 69 68 Respiratory Rate Blood Pressure O2 Sat by Pulse 98 99 98 Oximetry 05/25/19 05/25/19 05/25/19 05:06 05:11 05:16 Temperature Pulse Rate 77 72 69 Respiratory Rate Blood Pressure O2 Sat by Pulse 100 99 98 Oximetry 05/25/19 05/25/19 05/25/19 05:21 05:26 05:31 Temperature Pulse Rate 69 65 67 Respiratory Rate Blood Pressure O2 Sat by Pulse 98 100 99 Oximetry 05/25/19 05/25/19 05/25/19 05:36 05:41 05:46 Temperature Pulse Rate 74 72 75 Respiratory Rate Blood Pressure O2 Sat by Pulse 97 96 98 Oximetry 05/25/19 05/25/19 05/25/19 05:51 05:56 06:01 Temperature Pulse Rate 80 78 80 Respiratory Rate Blood Pressure O2 Sat by Pulse 98 98 98 Oximetry 05/25/19 05/25/19 05/25/19 06:06 06:11 06:16 Temperature Pulse Rate 67 69 69 Respiratory Rate Blood Pressure O2 Sat by Pulse 99 99 97 Oximetry 05/25/19 05/25/19 05/25/19 06:21 06:26 06:31 Temperature Pulse Rate 95 H 65 73 Respiratory Rate Blood Pressure O2 Sat by Pulse 98 98 98 Oximetry 05/25/19 05/25/19 05/25/19 06:36 06:41 06:46 Temperature Pulse Rate 68 69 69 Respiratory Rate Blood Pressure O2 Sat by Pulse 98 98 99 Oximetry 05/25/19 05/25/19 05/25/19 06:51 06:56 07:01 Temperature Pulse Rate 74 73 73 Respiratory Rate Blood Pressure O2 Sat by Pulse 98 98 98 Oximetry 05/25/19 05/25/19 05/25/19 07:06 07:11 07:16 Temperature Pulse Rate 71 76 72 Respiratory Rate Blood Pressure O2 Sat by Pulse 98 99 98 Oximetry 05/25/19 05/25/19 05/25/19 07:21 07:26 07:31 Temperature Pulse Rate 74 75 73 Respiratory Rate Blood Pressure O2 Sat by Pulse 98 98 98 Oximetry 05/25/19 05/25/19 05/25/19 07:36 07:40 07:41 Temperature 98.8 F Pulse Rate 85 72 Respiratory 16 Rate Blood Pressure O2 Sat by Pulse 99 99 Oximetry 05/25/19 05/25/19 05/25/19 07:44 07:46 07:51 Temperature Pulse Rate 75 79 77 Respiratory Rate Blood Pressure 93/56 O2 Sat by Pulse 99 99 Oximetry 05/25/19 05/25/19 05/25/19 07:56 08:01 08:16 Temperature Pulse Rate 80 83 73 Respiratory Rate Blood Pressure O2 Sat by Pulse 99 99 99 Oximetry 05/25/19 05/25/19 05/25/19 08:21 08:26 08:31 Temperature Pulse Rate 76 81 85 Respiratory Rate Blood Pressure O2 Sat by Pulse 99 99 99 Oximetry 05/25/19 05/25/19 05/25/19 08:36 08:41 08:46 Temperature Pulse Rate 85 77 82 Respiratory Rate Blood Pressure O2 Sat by Pulse 99 99 97 Oximetry 05/25/19 05/25/19 05/25/19 08:51 08:56 09:01 Temperature Pulse Rate 80 86 82 Respiratory Rate Blood Pressure O2 Sat by Pulse 99 98 98 Oximetry 05/25/19 05/25/19 05/25/19 09:06 09:11 09:16 Temperature Pulse Rate 85 88 83 Respiratory Rate Blood Pressure O2 Sat by Pulse 98 98 98 Oximetry 05/25/19 05/25/19 05/25/19 09:21 09:26 09:31 Temperature Pulse Rate 87 91 H 85 Respiratory Rate Blood Pressure O2 Sat by Pulse 99 98 99 Oximetry 05/25/19 05/25/19 05/25/19 09:36 09:41 09:46 Temperature Pulse Rate 85 86 86 Respiratory Rate Blood Pressure O2 Sat by Pulse 99 98 98 Oximetry 05/25/19 05/25/19 05/25/19 09:51 09:56 10:01 Temperature Pulse Rate 87 87 82 Respiratory Rate Blood Pressure O2 Sat by Pulse 97 97 98 Oximetry 05/25/19 05/25/19 05/25/19 10:06 10:11 10:16 Temperature Pulse Rate 85 84 83 Respiratory Rate Blood Pressure O2 Sat by Pulse 98 97 97 Oximetry 05/25/19 05/25/19 05/25/19 10:21 10:26 10:31 Temperature Pulse Rate 82 88 85 Respiratory Rate Blood Pressure O2 Sat by Pulse 97 97 98 Oximetry 05/25/19 05/25/19 05/25/19 10:36 10:41 10:46 Temperature Pulse Rate 79 80 81 Respiratory Rate Blood Pressure 94/53 O2 Sat by Pulse 97 98 Oximetry 05/25/19 05/25/19 10:47 10:49 Temperature Pulse Rate 92 H 83 Respiratory Rate Blood Pressure 100/60 97/62 O2 Sat by Pulse Oximetry - Laboratory Findings CBC and BMP: 05/22/19 05:15 05/22/19 05:15 Abnormal Lab Findings: Abnormal Labs 05/22/19 05/22/19 05/22/19 05:15 05:15 13:05 RBC 3.48 L Seg Neutrophils % 72.4 H Sodium 136 L Carbon Dioxide 20 L BUN 6 L Creatinine 0.4 L Total Protein 6.1 L Albumin 3.6 L Urine WBC (Auto) 23.0 H
--- NOTE | 2019-05-25 11:31 | Consultation ---
History of Present Illness Consult date: 05/25/19 Requesting physician: ANGÉLICA COLLIER Reason for Consult: syncope and invol movements Chief complaint: i feel weak History of present illness: This is a 39-year-old female 30 weeks , second her first child is healthy Patient has been having nausea vomiting for a few days at least a week and 3 days ago had a loss of consciousness event For at least a week she has not been able to hold down food she's feeling generally weak no medications on board patient feels dizzy with standing namely lightheadedness , there is no room spinning feeling or new change of balance or coordination, and states her legs feel weak when she stands and she has to hold onto furniture she had a syncopal event 3 days ago describes her going to sit down complaining about dizziness feeling weak and then patient slumped over there was no stiffening and/or posturing prior to slumping over and during her loss of consciousness patient had some involuntary movements of only the face and eyes but no generalized tonic-clonic seizure activity. Patient had similar symptoms about 2 months ago early on in her she passed out but at that time had no involuntary movements Blood pressures are low at bedside she is in the 90s lying down when she stands she is 100 systolic and then when she stands for 5 minutes she goes back down to the 90s systolic but the heart rate does respond accordingly and appropriately No prior history of epilepsy or neurologic disease patient has no prior history of MS strokes spinal cord disease brain tumors brain bleed Currently no vomiting the patient feels nauseous and complains about her legs feeling weak and shaky when she stands Patient did lose consciousness and states that she had no metallic taste in her mouth prior to her losing consciousness 3 days ago and she does not remember the event and doesn't know how she ended up on the ambulance There was no prolonged postictal. No tongue biting or bowel and bladder incontinence Since admission no repeated or recurrent seizure-like activity or loss of consciousness Patient denies any focal brain deficits and has no new neurological complaints No headache no change of vision or speech no difficulty with swallowing or ch noman of bowel and bladder patient denies any double vision vertigo denies any radicular pains denies any hallucinations or symptoms of a migraine EEG at bedside is reassuring but there is some intermittent diffuse rhythmic delta activity high amplitude sharply contoured slowing seen infrequently, but no features to suggest epileptogenic potential Fetus is reported to be healthy no Recent brain imaging EKG is normal sinus rhythm No neurological decline since admission No fever no confusion altered mental status nonsensical speech dysarthria and/or focal findings on exam by prior providers Medications and Allergies Allergies Allergy/AdvReac Type Severity Reaction Status Date / Time No Known Allergies Allergy Verified 12/17/18 15:11 Home Medications Medication Instructions Recorded Confirmed Last Taken Type Formula-Dha Softgel 1 tab PO DAILY 05/22/19 05/22/19 05/21/19 09:00 History Active Meds: Active Medications Acetaminophen (Tylenol) 650 mg PO Q6H PRN PRN Reason: Pain, Mild (1-3) Last Admin: 05/24/19 09:12 Dose: 650 mg Documented by: Nitrofurantoin Macrocrystals (Macrobid) 100 mg PO Q12HR RUBEN Last Admin: 05/25/19 10:54 Dose: 100 mg Documented by: Oxycodone/Acetaminophen (Percocet 5/325) 2 tab PO Q6H PRN PRN Reason: Pain, Moderate (4-6) Last Admin: 05/24/19 22:24 Dose: 2 tab Documented by: Terbutaline Sulfate (Brethine) 0.25 mg SUB-Q ONCE PRN PRN Reason: contractions Physical Examination - Vital Signs Vital Signs: Vital Signs Pulse Pulse Ox 72 99 05/22/19 04:56 05/22/19 04:56 AO 4 no aphasia All cranial nerves II through XII have been thoroughly tested and are intact EOMI PERRL No double vision tongue is midline no discharge nose or ears Patient is 5 out of [address] with some give way weakness She appears lethargic and slow to move no extra movements no interictal seizure-like activity Muscle bulk is down throughout Neck is supple Sensory is intact throughout Tone is symmetrical throughout deep tendon reflexes are symmetrical throughout No cerebellar signs Visual churchill are full On standing patient became lightheaded and had to hold onto furniture she has some mild symptoms of orthostatic tremor Abdomen soft intact pulses good x 4 No respiratory distress Gait unsteady Results - Laboratory Findings CBC and BMP: 05/22/19 05:15 05/22/19 05:15 Abnormal Lab Findings: Abnormal Labs 05/22/19 05/22/19 05/22/19 05:15 05:15 13:05 RBC 3.48 L Seg Neutrophils % 72.4 H Sodium 136 L Carbon Dioxide 20 L BUN 6 L Creatinine 0.4 L Total Protein 6.1 L Albumin 3.6 L Urine WBC (Auto) 23.0 H Assessment and Plan Syncope with concomitant involuntary movements likely secondary to hypotension leading to cerebral hypoperfusion causing orthostatic tremor lower extremity weakness secondary to likely basilar and anterior cerebral artery hypoperfusion causing collapse and loss of consciousness which is a natural reflex the head level with the heart for better perfusion, patient's loss of consciousness and involuntary movements are not suggestive of a generalized seizure or epilepsy rather vasovagal syncope EEG reassuring Patient has orthostatic hypotension on exam at bedside Hospital course reassuring Likely probably kidding factors include decreased by mouth intake dehydration and decreased vascular tone Patient had no focal deficits during her syncopal episode and exam is currently intact I am not suspecting posterior circulation stroke as a cause of collapse Avoid dehydration rapid position change and hypotension, avoid sedentary lifestyle At this time no indication for AED
--- NOTE | 2019-05-25 11:51 | Electroencephalogram Report ---
Electroencephalogram EEG Date of exam: 05/25/19 History: 39-year-old female 30 weeks arrived with syncope and collapse during which she had some involuntary movements of the face and eyes no prior history of epilepsy patient's alert and awake now, exam is completely intact, no recurrent seizure- like activity during hospital stay She has orthostatic hypotension and low resting blood pressures 20 minutes bedside EEG no AEDs onboard Impression: This EEG may be suggestive of a non specific diffuse cerebral brain dysfunction but though no other abnormal pattern was appreciated that would suggest focal brain dysfunction and or an increased epileptogenic potential. Based on my clinical correlation, patient's EEG findings are benign. Description: This EEG was acquired with electrodes placed according to International 10-20 electrode placement system. The waking background shows an appropriate organization with well-defined anterior posterior voltage and frequency gradients. Posteriorly, there is a well-developed alpha rhythm of [8.5] Hz which is symmetrical and bilaterally reactive. Anteriorly, there is a pattern of lower voltage and slightly irregular theta and beta range frequencies. photic stimulation produced no abnormalities Occasional diffuse disorganized pattern activity and two bursts of diffuse high amplitude sharply contoured theta slowing possibly resembling IRTA were appreciated. This may be a normal variant. Throughout, the recording there are no epileptiform abnormalities, focal slowing or lateralizing features, or significant interhemispheric findings. Interpretation: This is an abnormal awake EEG due to: 1. infrequent disorganized pattern and 2 bursts diffuse high amplitude sharply contoured theta slowing resembling IRTA
--- NOTE | 2019-05-25 11:55 | Event Note ---
Date: 05/25/19 Neuro consult and EEG much appreciated. Testing was WNL. Neuro does not feel like pt had a seizure, more likely a vasovagal episode. PT is also stable obstetrically. As a result, will d/c home. PT encouraged to continue to hydrate well at home. RTO next week.
--- NOTE | 2019-05-25 12:00 | Discharge Summary ---
Providers - Providers Date of Admission: 05/22/19 19:21 Date of discharge: 05/25/19 Attending physician: ANGÉLICA COLLIER 05/22/19 10:21 Consult to Physician [CONS] Urgent Comment: Consulting Provider: DOMINIQUE GAVIN Physician Instructions: Reason For Exam: syncope Neurology- Dr Ballard Primary care physician: ANGÉLICA COLLIER Hospitalization Reason for admission: other ( ) Discharge diagnosis: other Hospital course: Pt was s/p a syncopal episode at another ED while with her child but needed to be observation and ruled out for possible seizure. Pt had normal EEG. Also normal LE dopplers. PT suspected to have had a vasovagal episode. No issues during admission. Condition at discharge: Stable Disposition: [id number] TO HOME OR SELFCARE - Discharge Diagnoses (1) with 30 completed weeks gestation Status: Acute (2) Vasovagal episode Status: Acute Plan - Provider Discharge Summary Activity: routine Diet: routine Instructions: routine (PT encouraged to hydrate well.) Additional instructions: [] Smoking cessation referral if applicable(refer to patient education folder for contact #) [] Refer to [facility]'s [facility] Booklet Call your doctor immediately for: * Fever > 100.5 * Heavy vaginal bleeding ( >1 pad per hour) * Severe persistent headache * Shortness of breath * Reddened, hot, painful area to leg or breast * Drainage or odor from incision. * Keep incision clean and dry at all times and follow doctor's instructions regarding bathing/showering - Follow up plan Follow up: ANGÉLICA COLLIER MD [Primary Care Provider] - 7 Days
== END 2019-05-25 13:00 | disposition home or self-care (01) ==
LOC: LD 04:36 → TRG 04:36 → LD 19:21
PROVIDERS: ADMIT Obstetrics & Gynecology; ATTEND Obstetrics & Gynecology
DX: O99.353 Diseases of the nervous system complicating pregnancy, third trimester (principal); R56.9 Unspecified convulsions; R55 Syncope and collapse; Z3A.30 30 weeks gestation of pregnancy; Z98.84 Bariatric surgery status
CPT/HCPCS: 36415; 76815; 76819; 80053; 80307; 81001; 82607; 82747; 83036; 85025; 86850; 86900; 86901; 87086; 93005; 93010; 93970; 95819; 96374; G0378; J2405; J7120

== ENCOUNTER 2019-05-27 15:44 | Outpatient (CLI) | payer MEDICAID | END 2019-05-27 19:35 | disposition home or self-care (01) | LOC: TRG 15:44 | PROVIDERS: ATTEND Obstetrics & Gynecology | DX: O47.03 False labor before 37 completed weeks of gestation, third trimester (principal); Z3A.31 31 weeks gestation of pregnancy | CPT/HCPCS: 59025 ==